=== PATIENT | female | born 1985 | race African-American/Black ===

== ENCOUNTER 2017-05-15 23:54 | Inpatient (IN) ==
[2017-05-16] MEDS ORDERED: ZOFRAN IV PRN (00:24)
[2017-05-16] MEDS ORDERED: NS 1,000 ML IV ONE (00:25)
[2017-05-16] MEDS ORDERED: OFIRMEV 1000 MG/ISOTONIC SOLN 1,000 MG/100 ML BOTTLE IV ONE (00:37)
[2017-05-16 00:38] LABS: MANUAL DIFF NEEDED? NO
[2017-05-16] MEDS ORDERED: POTASSIUM CHLORIDE 20% LIQUID PO ONE (01:04)
[2017-05-16] MEDS ORDERED: ROBAXIN PO ONE (01:05)
[2017-05-16] MEDS ORDERED: NS 2,000 ML IV ONE (01:06)
[2017-05-16 01:07] LABS: AGAP 16; ALBUMIN 4.3 g/dL (3.5-5.0); ALKALINE PHOSPHATASE 52 U/L (32-104); AMYLASE 86 U/L (20-200); BUN 8 mg/dL (8-22); CALCIUM 9.4 mg/dL (8.8-10.2); CHLORIDE 101 mmol/L (98-107); COSMO 277; GOT 20 U/L (10-30); GPT 17 U/L (10-36); LIPASE 19 U/L (13-60); POTASSIUM 3.4 mmol/L (3.5-5.1); SODIUM 138 mmol/L (136-145); TCO2 22 mmol/L (25-35); TOTAL PROTEIN 7.6 g/dL (6.3-8.3)
[2017-05-16 01:14] LABS: BASO% 0.3 % (0.0-0.8); EOS# 0.01 X1000 (0.0-0.7); EOS% 0.1 % (0.0-10.0); HEMATOCRIT 37.1 % (37.0-47.0); IMM GRAN# 0.01 X1000 (0.0-0.04); IMM GRAN% 0.1 % (0.0-0.5); LYMPH# 1.45 X1000 (1.2-3.4); LYMPH% 19.6 % (20.5-51.1); MCH 31.8 PG (27-31); MCV 90.7 FL (81-99); MONO# 0.39 X1000 (0.11-0.59); MONO% 5.3 % (1.7-9.3); MPV 9.1 FL (7.4-10.4); NEUT% 74.6 % (42.2-75.2); PLT 296 X1000 (130-400); RBC 4.09 XMIL (4.2-5.4)
[2017-05-16] MEDS ORDERED: PHENERGAN IV ONE (01:32)
[2017-05-16] MEDS ORDERED: SODIUM CHLORIDE 0.9% INJ ONE (01:32)
[2017-05-16 01:50] LABS: URINE CULTURE PL NEEDED? NO
[2017-05-16 01:59] LABS: UR AMPHETAMINES QUAL NONE DETECTED (NONE DETECT); UR BARBITUATES QUAL NONE DETECTED (NONE DETECT); UR BENZODIAZEPIN QUAL NONE DETECTED (NONE DETECT); UR CANNABINOIDS QUAL PRESUMPTIVE POSITIVE (NONE DETECT); UR COCAINE QUAL NONE DETECTED (NONE DETECT); UR MDMA QUAL NONE DETECTED (NONE DETECT); UR METHADONE QUAL NONE DETECTED (NONE DETECT); UR METHAMPHETAMINE QUAL NONE DETECTED (NONE DETECT); UR OPIATES QUAL NONE DETECTED (NONE DETECT); UR OXYCODONE QUAL NONE DETECTED (NONE DETECT); UR PCP QUAL NONE DETECTED (NONE DETECT); UR TCA QUAL NONE DETECTED (NONE DETECT)
[2017-05-16 02:19] LABS: BILIRUBIN URINE NEGATIVE (NEGATIVE); BLOOD URINE NEGATIVE (NEGATIVE); CLARITY CLEAR (CLEAR); COLOR YELLOW; GLUCOSE URINE NEGATIVE (NEGATIVE); LEUKOCYTES URINE NEGATIVE (NEGATIVE); NITRITE URINE NEGATIVE (NEGATIVE); PROTEIN URINE TRACE mg/dL (NEGATIVE); URINE EPITHELIAL CELLS <10 /HPF (<10); URINE RBC <10 /HPF (<10); URINE WBC <10 /HPF (<10); UROBILINOGEN URINE 4+(12 mg/dL)
[2017-05-16 02:20] LABS: URINE SOURCE CATH
[2017-05-16] MEDS ORDERED: REGLAN IV ONE (02:43)
[2017-05-16] MEDS ORDERED: POTASSIUM CHLORIDE 10 MEQ in NS 1,000 ML IV ONE (02:44)
[2017-05-16] MEDS ORDERED: NS + KCL 20 MEQ 1,000 ML IV ONE (03:07)
[2017-05-16] MEDS: ZOFRAN IV PRN ×4 (04:56→19:03)
[2017-05-16] MEDS: DILAUDID IV PRN ×4 (05:56→20:05)
--- NOTE | 2017-05-16 07:16 | Diag Imaging Result Doc PS360 ---
KUB ABDOMEN - 05/16/2017 INDICATION: vomiting TECHNIQUE: COMPARISON: 04/07/2017 FINDINGS: There are two metallic densities projecting over the pelvic soft tissues. Their location is uncertain. Stable cholecystectomy clips. No evidence of bowel obstruction or free air. IMPRESSION: Nonspecific findings. Electronically signed by Ron Patino 05/16/2017 7:13 AM
[2017-05-16] MEDS: NS 1,000 ML IV SCH (11:47)
--- NOTE | 2017-05-16 12:00 | Diag Imaging Result Doc PS360 ---
CT ABD/PELVIS W/ IV CONT ONLY - 05/16/2017 INDICATION: abd pain TECHNIQUE: A CT dose reduction protocol was used. COMPARISON: 05/17/2015 FINDINGS: The lung bases are clear and the heart size is normal. Stable cholecystectomy clips. Stable benign left renal cyst. There is some physiologic pelvic free fluid. There are probably some ovarian cysts bilaterally. No bowel obstruction or inflammation. Urinary bladder and rectum are normal. The liver, spleen, pancreas, and adrenals are normal. Bones are intact. IMPRESSION: 1. Physiologic pelvic free fluid. 2. Possible bilateral ovarian cysts. 3. Otherwise negative. Electronically signed by Ron Patino 05/16/2017 11:58 AM
[2017-05-17] MEDS: NS 1,000 ML IV SCH ×2 (00:06→14:24)
[2017-05-17] MEDS: ZOFRAN IV PRN ×2 (00:06→04:10)
[2017-05-17] MEDS: DILAUDID IV PRN ×4 (00:06→12:56)
[2017-05-17 07:18] LABS: MANUAL DIFF NEEDED? NO
[2017-05-17 07:22] LABS: BASO% 0.1 % (0.0-0.8); HEMATOCRIT 37.2 % (37.0-47.0); HEMOGLOBIN 13.1 g/dL (12.0-16.0); IMM GRAN# 0.01 X1000 (0.0-0.04); IMM GRAN% 0.1 % (0.0-0.5); LYMPH# 1.05 X1000 (1.2-3.4); LYMPH% 14.3 % (20.5-51.1); MCHC 35.2 g/dL (33-37); MCV 90.7 FL (81-99); MONO# 0.47 X1000 (0.11-0.59); MONO% 6.4 % (1.7-9.3); MPV 8.7 FL (7.4-10.4); NEUT% 79.1 % (42.2-75.2); PLT 226 X1000 (130-400)
[2017-05-17 07:35] LABS: AGAP 15; BUN 7 mg/dL (8-22); CALCIUM 8.6 mg/dL (8.8-10.2); CHLORIDE 106 mmol/L (98-107); COSMO 277; POTASSIUM 3.7 mmol/L (3.5-5.1); SODIUM 141 mmol/L (136-145); TCO2 21 mmol/L (25-35)
[2017-05-17] MEDS ORDERED: PROTONIX IV SCH (08:15)
[2017-05-17] MEDS ORDERED: SODIUM CHLORIDE 0.9% INJ SCH (08:15)
[2017-05-17] MEDS ORDERED: REGLAN PO SCH (11:00)
[2017-05-17 11:48] VITALS: BP 121/74
[2017-05-17] MEDS ORDERED: CARAFATE LIQUID PO SCH (14:00)
[2017-05-18] MEDS ORDERED: PRILOSEC PO SCH (07:00)
== END 2017-05-17 16:15 | disposition home or self-care (01) ==
LOC: P.ED 23:54 → P.MEDSURG 05-16 03:08 → SUATTDRO 05-16 03:08 → P.MEDSURG 05-16 03:17
PROVIDERS: ADMIT Family Medicine; ATTEND Internal Medicine

== ENCOUNTER 2019-06-03 13:09 | Inpatient (IN) ==
[2019-06-03 13:37] LABS: URINE SOURCE CLEAN CATCH
[2019-06-03 13:40] LABS: BILIRUBIN URINE SMALL (NEGATIVE); BLOOD URINE MODERATE (NEGATIVE); COLOR YELLOW; GLUCOSE URINE NEGATIVE (NEGATIVE); KETONE URINE 20 mg/dL (NEGATIVE); LEUKOCYTES URINE NEGATIVE (NEGATIVE); NITRITE URINE NEGATIVE (NEGATIVE); PH URINE 6.5; PROTEIN URINE 200 mg/dL (NEGATIVE); SP GRAVITY URINE 1.048; TURBIDITY URINE CLEAR (CLEAR); UROBILINOGEN URINE 3 mg/dL (NORMAL)
[2019-06-03 13:41] LABS: UR EPITHELIAL CELLS <10 /HPF (<10); URINE BACTERIA NEGATIVE /HPF; URINE WBC <10 /HPF (<10)
[2019-06-03] MEDS ORDERED: COMPAZINE IV ONE (13:54)
[2019-06-03] MEDS ORDERED: NS 1,000 ML IV ONE (13:54)
[2019-06-03] MEDS ORDERED: TORADOL IV ONE (13:55)
--- NOTE | 2019-06-03 13:55 | Diag Imaging Result Doc PS360 ---
EXAM: CHEST-1 VIEW HISTORY: POSSIBLE SEPSIS TECHNIQUE: Single view 04/30/2019 COMPARISON: None. FINDINGS: The lungs are well expanded. The heart is not enlarged. The vessels are not distended. There are no infiltrates. No effusion identified. IMPRESSION: No pneumonia. Follow-up PA and lateral recommended if symptoms persist. Electronically signed by Abimael Helton 06/03/2019 1:53 PM
--- NOTE | 2019-06-03 13:59 | PROVIDER DOCUMENTATION ---
HPI-Abdominal Pain/GI Problem - General Chief Complaint: Abdominal Pain Stated Complaint: LEFT FLANK PAIN Time Seen by Provider: 06/03/19 13:34 Source: patient Allergies/Adverse Reactions: Patient Allergies Allergy/AdvReac Type Severity Reaction Status Date / Time No Known Allergies Allergy Verified 06/03/19 13:51 Home Medications: Home Medication List Medication Instructions Recorded Confirmed Last Taken Type Doxycycline 100 mg PO BID #20 tab 05/31/19 06/03/19 1 Day Ago Rx ~06/02/19 Hydrocodone/Acetaminophen 1 ea PO Q6H PRN 06/03/19 06/03/19 1 Day Ago History [Hydrocodone-Acetamin 7.5-325] ~06/02/19 - History of Present Illness-ABD Nature of Presenting Problems: Patient is a 33 yobf who complains of lower back, left flank, and LLQ pain x 4 days. The pain is associated with n/v. Denies fever or any other complaints at this time. Has been seen here multiple times for same recently. Review of Systems - Adult - REVIEW OF SYSTEMS - ADULT Constitutional: reports: no symptoms reported. denies: fever Eyes: reports: no symptoms reported Ears, Nose, Mouth & Throat: reports: no symptoms reported Cardiovascular: reports: no symptoms reported Respiratory: reports: no symptoms reported Gastrointestinal: reports: see HPI Genitourinary: reports: no symptoms reported Musculoskeletal: reports: no symptoms reported Integumentary: reports: no symptoms reported Neurological: reports: no symptoms reported Psychiatric: reports: no symptoms reported Endocrine: reports: no symptoms reported Hematologic/Lymphatic: reports: no symptoms reported Allergic/Immunologic: reports: no symptoms reported All Other Systems: Reviewed and Negative Past History - Adult - PAST MEDICAL HISTORY-ADULT Review of Records: reports: Old Records Reviewed, Nursing Assessment Review, Medications Reviewed Major Childhood Illnesses: reports: denies history Cardiovascular: reports: denies history Respiratory: reports: denies history Gastrointestinal: reports: GERD, IBS, other ([facility]) Obstetrical/Gynecological: reports: denies history Genitourinary: reports: denies history Musculoskeletal: reports: chronic pain (back) Neurological: reports: denies history Psychiatric: reports: denies history Endocrine/Immune: reports: denies history Other Conditions: reports: denies history - PRIOR SURGERIES/PROCEDURES Surgical/Procedure History: reports: cholecystectomy, BTL, tonsillectomy - IMMUNIZATION STATUS Childhood Immunizations: See Nurse Assessment Flu Vaccine: See Nurse Assessment - FAMILY HISTORY Family History: reviewed, not pertinent - SOCIAL HISTORY Smoking: non-smoker Physical Exam-General - PHYSICAL EXAM-ADULT Initial Vital Signs Reviewed: Yes - CONSTITUTIONAL General Appearance: alert, moderate distress. negative: lethargic, slow to respond - EYES Eyes: PERRL/EOMI, pink conjunctivae - HEAD, EARS, NOSE, MOUTH & THROAT HENMT: normocephalic/atraumatic - NECK Neck: full range of motion, supple, normal inspection - RESPIRATORY Respiratory: chest non-tender, lungs clear, normal breath sounds, no pleuratic chest pain, no respiratory distress, no accessory muscle use - CARDIOVASCULAR Cardiovascular: regular rate, rhythm, no gallop, no murmur, tachycardia - GASTROINTESTINAL (ABDOMEN) Abdominal Exam: normal bowel sounds, soft, tenderness (LLQ). negative: distended, guarding, rigid, rebound - MUSCULOSKELETAL Back Exam: normal inspection, no CVA tenderness Extremity: normal range of motion, non-tender, normal inspection - SKIN Integumentary: normal color, warm/dry. negative: cyanosis, diaphoresis, jaundice, mottled, pallor - NEUROLOGIC Neurologic: grossly normal, no motor/sensory deficits - PSYCHIATRIC Psych/Mental Status: normal thought content, normal thought process, oriented x 3, other (restless) Progress - PLAN OF CARE/RESULTS Progress/Plan/Lab Results: Vital Signs - 8 hr 06/03/19 13:11 Temperature 98.4 F Pulse Rate 112 H Respiratory Rate 20 Blood Pressure 110/70 O2 Sat by Pulse Oximetry 97 Laboratory Results - last 24 hr 06/03/19 13:19 Urine Source CLEAN CATCH Urine Color YELLOW Urine Turbidity CLEAR Urine pH 6.5 Ur Specific [place] 1.048 Urine Protein 200 A Ur Glucose (Stick) NEGATIVE Ur Ketones (Stick) 20 A Urine Blood MODERATE A Urine Nitrite NEGATIVE Urine Bilirubin SMALL A Urobilinogen Dipstick 3 A Urine Leukocytes NEGATIVE Urine WBC (Auto) <10 Urine RBC (Auto) 10-20 A U Epithel Cells (Auto) <10 Urine Bacteria (Auto) NEGATIVE Orders Category Date Time Status Cardiac Monitoring DIRECTED Care 06/03/19 13:25 Active IV Insertion ORDERED Care 06/03/19 13:25 Completed Notify MD of + Sepsis Screen NOW Care 06/03/19 13:25 Active Notify Physician As Ordered Care 06/03/19 13:25 Active CHEST-1 VIEW [RAD] Stat Exams 06/03/19 13:25 Completed BLOOD CULTURE [BLDCUL] Stat Lab 06/03/19 13:50 Ordered CBC WITH DIFF [HEME] Stat Lab 06/03/19 13:50 Ordered CK PROFILE [SP CHEM] Stat Lab 06/03/19 13:50 Ordered COMPREHENSIVE METABOLIC PANEL [CHEM] Stat Lab 06/03/19 13:50 Ordered LACTATE, PLASMA [CHEM] Lab 06/03/19 13:54 Ordered LACTATE, PLASMA [CHEM] Lab 06/03/19 16:30 Uncollected LACTATE, PLASMA [CHEM] Lab 06/03/19 19:30 Uncollected TEST-URINE [PREG] Stat Lab 06/03/19 13:58 Ordered PROTIME WITH INR [COAG] Stat Lab 06/03/19 13:50 Ordered PTT [COAG] Stat Lab 06/03/19 13:50 Ordered TROPONIN T Stat Lab 06/03/19 13:50 Ordered URINALYSIS W/POSS RFLX CULT [URINALYSIS] Stat Lab 06/03/19 13:19 Completed URINE DRUG SCREEN Stat Lab 06/03/19 13:58 Ordered 0.9% Sodium Chloride Inj [Ns] 1,000 ml Med 06/03/19 13:54 Active IV 999 mls/hr Ketorolac [Toradol] Med 06/03/19 13:55 Discontinued 15 mg IV NOW ONE Prochlorperazine [Compazine] Med 06/03/19 13:54 Discontinued 10 mg IV NOW ONE Oxygen Device Stat Oth 06/03/19 13:25 Completed Result Diagrams: 06/03/19 13:45 06/03/19 13:45 - REASSESSMENT Reassessment #1 Time Reassessed: 13:58 Status: other (Reviewed old records and CT from 05/31/19. Appears that pt having same s/s. Will medicate and reassess, no indication for repeat CT at this time.) Reassessment #2 Time Reassessed: 15:00 Status: unchanged (report received by HALLIE Shin. Awaiting labs on patient. She is resting in bed at this time.) - XRAY 1 XRAY Study: Chest ([facility] - [address], [address], [place] [address] [facility] - [address] , [place] [address] Department of Imaging Patient: GOGO SAAVEDRA Date: 06/03/19MR#: [id number] : 1985ADM Status: PRE ERAcct#: [id number] Age/Sex: 33/FRoom/Bed: Loc: ED Ordering Physician: Marvin Villagomez MD Family Physician: Taran Estrada MD Reason for Procedure: POSSIBLE SEPSIS ___ Signed EXAM: CHEST-1 VIEW HISTORY: POSSIBLE SEPSIS TECHNIQUE: Single view 04/30/2019 COMPARISON: None. FINDINGS: The lungs are well expanded. The heart is not enlarged. The vessels are not distended. There are no infiltrates. No effusion identified. IMPRESSION: No pneumonia. Follow-up PA and lateral recommended if symptoms persist. Electronically signed by Abimael Helton 06/03/2019 1:53 PM 06/03/19 1353 Interpreting Physician: Abimael Helton MD Dictated Date/Time: 06/03/19 1352 cc: Marvin Villagomez MD; Taran Estrada MD) - CONSULTS/PCP/HOSPITALIST Notification #1 *Consult/PCP/Hospitalist*: HALLIE Kuhn Time Discussed: 15:47 Reason/Comments: Rhabdo, hypernatremia Consult Disposition: Admit - CHANGE OF SHIFT REPORT (ED Provider) 1 Report Given and Care Transferred to:: HALLIE Hubbard Time of Transfer: 15:16 Items Pending: Labs, Pain Control Departure - Departure Date of Disposition Decision: 06/03/19 Time of Disposition Decision: 15:48 DIAGNOSIS: Rhabdomyolysis, Dehydration, Cyclic vomiting syndrome, Cannabis hyperemesis syndrome concurrent with and due to cannabis abuse Disposition: ADMITTED INPATIENT 09 Certified Medical Emergency: Emergent Condition: Critical Referrals and Follow-Ups: Taran Estrada MD [Primary Care Provider] - Discharge Education: Steps to Quit Smoking, [id number] - Critical Care Note This patient required my direct & personal management of CC.: No Attestation - Physician/ PÉREZ Attestation Patient care was provided by Advanced Practice Provider:: Yes Advanced Practice Provider:: Chang Gonzales Advanced Practice Provider documentation review:: The Mid-level provider documentation, treatment plan and medical decision making was reviewed by the physician who agrees with all treatment and medical decision making by the MLP. The physician spent face to face time with patient:: No Advanced Practice Provider documentation review:: Supervising physician onsite and consulted in the evaluation and care of this patient. The physician did not have a face to face encounter with the patient.
[2019-06-03 14:24] LABS: BASO# 0.02 X1000 (0.0-0.2); BASO% 0.2 % (0.0-0.8); EOS# 0.01 X1000 (0.0-0.7); EOS% 0.1 % (0.0-10.0); HEMATOCRIT 46.6 % (37.0-47.0); HEMOGLOBIN 15.2 g/dL (12.0-16.0); IMM GRAN# 0.02 X1000 (0.0-0.04); IMM GRAN% 0.2 % (0.0-0.5); LYMPH# 1.14 X1000 (1.2-3.4); LYMPH% 13.9 % (20.5-51.1); MCH 30.7 PG (27-31); MCHC 32.6 g/dL (33-37); MCV 94.1 FL (81-99); MONO# 0.54 X1000 (0.11-0.59); MONO% 6.6 % (1.7-9.3); MPV 9.4 FL (7.4-10.4); PLT 239 X1000 (130-400); RBC 4.95 XMIL (4.2-5.4); RDW 13.9 % (11.5-14.5); WBC 8.23 X1000 (4.8-10.8)
[2019-06-03 14:30] LABS: INR 1.04; PROTIME 13.7 Seconds (11.0-16.0)
[2019-06-03 15:18] LABS: AGAP 16; ALB/GLOB RATIO 1.8; ALKALINE PHOSPHATASE 67 U/L (32-104); BUN 29 mg/dL (8-22); CALCIUM 9.7 mg/dL (8.8-10.2); CHLORIDE 118 mmol/L (98-107); COSMO 321; CREATININE 0.9 mg/dL (0.5-0.9); ESTIMATED GFR > 60; GLUCOSE 110 mg/dL (70-104); GOT 454 U/L (10-30); GPT 297 U/L (10-36); POTASSIUM 4.2 mmol/L (3.5-5.1); SODIUM 159 mmol/L (136-145); TCO2 25 mmol/L (25-35); TOTAL BILIRUBIN 0.73 mg/dL (0.20-1.00); TOTAL PROTEIN 7.8 g/dL (6.3-8.3)
[2019-06-03 15:27] LABS: CK PROFILE > 20000 U/L (24-173)
[2019-06-03] MEDS ORDERED: SODIUM BICARBONATE 8.4% 150 MEQ in D5W 1,000 ML IV SCH (15:45)
[2019-06-03 15:46] LABS: CK-MB 29.11 ng/mL (0.0-5.0)
[2019-06-03 15:57] LABS: UR AMPHETAMINES QUAL NONE DETECTED (NONE DETECT); UR BARBITUATES QUAL NONE DETECTED (NONE DETECT); UR BENZODIAZEPIN QUAL NONE DETECTED (NONE DETECT); UR CANNABINOIDS QUAL PRESUMPTIVE POSITIVE (NONE DETECT); UR COCAINE QUAL NONE DETECTED (NONE DETECT); UR METHADONE QUAL NONE DETECTED (NONE DETECT); UR OPIATES QUAL PRESUMPTIVE POSITIVE (NONE DETECT); UR OXYCODONE QUAL PRESUMPTIVE POSITIVE (NONE DETECT); UR PCP QUAL NONE DETECTED (NONE DETECT)
[2019-06-03] MEDS ORDERED: SODIUM BICARBONATE 8.4% 50 MEQ in D5W 1,000 ML IV ONE (16:28)
[2019-06-03 16:45] LABS: UR POTASSIUM 87.2 mmoll
[2019-06-03] MEDS ORDERED: SODIUM CHLORIDE 0.9% INJ SCH (16:45)
[2019-06-03 16:51] LABS: ALLEN TEST NO; BE 2.6 mmoll (-3.0-3.0); BLOOD TYPE ARTERIAL; HCO3-(ACT) 26.9 mmoll (20.0-26.0); METHB 1.3 % (0.0-1.5); MODALITY ROOM AIR; O2(CT) 18.7 mL/dL (15.0-23.0); O2HB 95.9 % (95.0-99.0); PCO2(98.6) 41 mmHg (35-45); PO2(98.6) 105 mmHg (60-100); SAMPLE BLOOD; SAO2 99.1 % (95.0-100.0); THB 13.8 g/dL (11.5-17.4); pH(98.6) 7.43 (7.35-7.45)
[2019-06-03] MEDS ORDERED: ATIVAN IV ONE (17:30)
[2019-06-03] MEDS: ATIVAN IV PRN (18:14)
[2019-06-03] MEDS: MORPHINE IV PRN ×2 (18:15→23:47)
--- NOTE | 2019-06-03 19:05 | HISTORY AND PHYSICAL ---
PRIMARY CARE PHYSICIAN: Taran Estrada MD CHIEF COMPLAINT: One week with intermittent nausea and vomiting and poor appetite and abdominal pain. HISTORY OF PRESENT ILLNESS: Ms. West is a 33-year-old female with a history of cannabis hyperemesis syndrome and marijuana dependence who presented to the ER today with a chief complaint of a week of persistent lower abdominal pain associated with intermittent bouts of nausea and vomiting. The patient reports that she had this same thing happen in July of last year at which time she was admitted for several days for treatment. The patient initially presented to the ER on May 30 with a chief complaint of abdominal pain, as well as intermittent nausea and vomiting and a very poor appetite. She was assessed and given some fluid and pain medication and sent home. She then returned to the ER on May 31 with the same complaints. During that visit, a CT of the abdomen and pelvis done which revealed no acute disease. She was treated with 2 L of fluid and given a prescription for doxycycline and told to stop smoking marijuana and to follow up with her primary care physician. Today, the patient states that her symptoms have worsened, and she is unable to eat anything. She states that she has been drinking Gatorade as much as she can, but she ends up vomiting shortly after drinking it. She rates the abdominal pain at a 10/10 in intensity and describes it as a cramping sensation that will not stop. The patient states that Dr. Estrada placed her on Megace recently. The patient admits to smoking marijuana 3 times a day almost everyday and has been doing this for several years. In the ER today, the patient was noted to have a CK of greater than 20,000 and a sodium of 159 with normal renal function. In the ER, the patient was started on a bicarbonate drip. PAST MEDICAL HISTORY: 1. Cannabis hyperemesis syndrome. 2. Marijuana dependence. PAST SURGICAL HISTORY: None. FAMILY HISTORY: Reviewed and noncontributory. SOCIAL HISTORY: The patient states that she lives with her boyfriend. The patient smokes marijuana 3 times a day every day and has been doing this for several years. She denies any alcohol usage. ALLERGIES: No known drug allergies. HOME MEDICATIONS: 1. Andrews 7.5/325 one tablet oral every 6 hours p.r.n. for pain. 2. Megace 40 mg p.o. daily. REVIEW OF SYSTEMS: A 12-point review of systems has been performed. Please refer to the history of present illness for pertinent positives and negatives. PHYSICAL EXAMINATION: VITAL SIGNS: Temperature 98 degrees, blood pressure 107/68, heart rate 73, respirations 18, and O2 saturations 100% on room air. GENERAL: This is a cachectic young female writhing on the stretcher. HEENT: Normocephalic, atraumatic.Conjunctiva clear, EOMI, PERRLA. Poor dentition. Dry mucus membranes. NECK: Supple. Trachea is midline. No JVD. No lymphadenopathy. HEART: S1, S2 normal. Regular rate and rhythm. LUNGS: Clear to auscultation bilaterally. No wheezing. No rales. No rhonchi. ABDOMEN: Positive bowel sounds. Soft. Diffuse tenderness on palpation. No rebound tenderness EXTREMITIES: No peripheral edema, . No cyanosis. No calf tenderness. NEUROLOGIC: The patient is alert and oriented x3. No focal neurologic deficits noted. Cranial nerves 2 through 12 intact. LABS: White blood cell count 8.2, hemoglobin 15, hematocrit 46, platelets 239,000. INR 1. ABG, pH 7.43, pCO2 of 41, PO2 of 105, bicarbonate 26. Sodium 159, potassium 4.2, chloride 118, CO2 of 25, BUN 29, creatinine 0,.9 glucose 110. AST 454, ALT 297, alkaline phosphatase 67. CK greater than 20,000. Troponin less than 0.01, albumin 5. UA shows moderate blood, small bilirubin, 3+ urobilinogen, negative for leukocytes. Toxicology screen reveals positive for opiates, oxycodone, and cannabinoids. Chest x-ray shows no acute disease. ASSESSMENT AND PLAN: 1. Cyclic vomiting syndrome. This is likely secondary to the patient's heavy marijuana usage. The patient has been counseled extensively about the importance of cessation. In the meantime, the patient will be hydrated and started on antiemetic therapy. 2. Acute rhabdomyolysis. The etiology is unknown. The patient denies any recent falls or initiation of any new medications. The patient has been placed on a bicarbonate drip. We will monitor the CK closely and monitor the patient's renal function closely. 3. Severe hypernatremia. Likely secondary to dehydration given the patient's persistent nausea and vomiting. The patient has been started on a bicarbonate drip at this time. The fluids will be adjusted based on serial sodium checks. We will also monitor the patient's mental status and urine output closely. The case was discussed with Dr. Hubbard. 4. Transaminitis. This is likely secondary to the patient's severe dehydration. We will check a hepatitis profile. The patient will be hydrated and will repeat the liver function studies tomorrow morning. 5. Marijuana dependence. The patient has been counseled about cessation. 6. Gastrointestinal prophylaxis. Will start the patient on IV Protonix. 7. Deep vein thrombosis prophylaxis. Will start the patient on Lovenox. cc: Kathie Jaquez MD MTDD
[2019-06-03 23:04] LABS: CK INDEX 0.1 (0.0-2.5); CK-MB 18.66 ng/mL (0.0-5.0)
[2019-06-03] MEDS: D5W 1,000 ML IV SCH (23:41)
[2019-06-03] MEDS: ZOFRAN IV PRN (23:47)
[2019-06-04] MEDS: ATIVAN IV PRN (00:02)
[2019-06-04] MEDS: MORPHINE IV PRN ×4 (06:16→19:10)
[2019-06-04] MEDS: ZOFRAN IV PRN ×3 (06:16→16:23)
[2019-06-04] MEDS: PROTONIX IV SCH (06:17)
[2019-06-04 06:49] LABS: AGAP 14; ALB/GLOB RATIO 1.5; ALBUMIN 3.8 g/dL (3.5-5.0); ALKALINE PHOSPHATASE 49 U/L (32-104); BUN 27 mg/dL (8-22); CHLORIDE 116 mmol/L (98-107); CK PROFILE 9917 U/L (24-173); COSMO 319; CREATININE 0.7 mg/dL (0.5-0.9); ESTIMATED GFR > 60; GLUCOSE 122 mg/dL (70-104); GOT 255 U/L (10-30); GPT 214 U/L (10-36); MAGNESIUM 2.6 mg/dL (1.5-2.7); SODIUM 158 mmol/L (136-145); TCO2 28 mmol/L (25-35); TOTAL BILIRUBIN 0.57 mg/dL (0.20-1.00); TOTAL PROTEIN 6.3 g/dL (6.3-8.3)
[2019-06-04] MEDS: D5W 1,000 ML IV SCH ×2 (07:47→16:23)
[2019-06-04 07:50] LABS: CK INDEX 0.1 (0.0-2.5); CK-MB 10.81 ng/mL (0.0-5.0)
[2019-06-04] MEDS: LOVENOX SUBQ SCH (09:19)
--- NOTE | 2019-06-04 11:16 | NEPHROLOGY CONSULTATION ---
DATE: 06/04/2019 REASON FOR CONSULTATION: Hypernatremia. HISTORY OF PRESENT ILLNESS: Ms. West is a 33-year-old -[place] woman who has chronic back pain and takes hydrocodone at home. 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 She has been dealing with left lower quadrant abdominal discomfort and has made several trips to the emergency room and was ultimately admitted to the hospital yesterday. Her abdominal discomfort is associated with anorexia but no vomiting. Decreased number of bowel movements but no complaint of constipation and certainly no diarrhea. Her evaluation in the emergency room found normal blood pressure and markedly elevated CK and hypernatremia. After telephone discussion yesterday with Dr. Jaquez, we treated the patient with D5 water overnight with essentially no improvement in her hypernatremia. Sodium 159 on admission and 158 today. She denies polyuria or polydipsia. She denies use of supplements, vitamins, herbs, or street drugs. PAST MEDICAL HISTORY: As above. HOME MEDICATION: Hydrocodone. SOCIAL HISTORY: As above. The chart indicates that she does actually use marijuana. She lives with her boyfriend. FAMILY HISTORY AND REVIEW OF SYSTEMS: Otherwise noncontributory. PHYSICAL EXAMINATION: Vital signs: Blood pressure 91/61, heart rate 103, respiration 18, afebrile. General: She is a thin -[place]ian woman middle-aged, obvious weight loss, in no acute distress. Skin: Warm and dry. HEENT: Conjunctiva are pink. Pupils are equal. Oropharynx is clear with poor oral hygiene but otherwise normal. Tongue is coated. Neck: Supple. Trachea is midline. Neck veins are not visible. Heart: PMI nondisplaced. Regular rate and rhythm without gallops or murmurs. Lungs: Have equal breath sounds. No crackles, wheezes, dullness, retractions, etc. Abdomen: Minimally tender in the left lower quadrant but no guarding or rebound. Obvious weight loss. No organomegaly or masses. Extremities: Have no edema, clubbing, or cyanosis. Neurologic exam: Nonfocal. IMPRESSION: Hypernatremia. Etiology is not obvious. Her urine osmolality was greater than 1200. There was no glucose on her dipstick urine. Random urine sodium was only 38. The connection between her hypernatremia and her evident rhabdomyolysis is also not obvious. We will continue her IV fluids as ordered and monitor her sodium and her CK carefully. Will order a more thorough toxicology screen as well as HIV testing. Will follow along. cc: Michelet Hubbard MD
[2019-06-04 13:34] LABS: HEPATITIS PROFILE ACUTE SEE COMMENTS
--- NOTE | 2019-06-04 15:40 | Diag Imaging Result Doc PS360 ---
US PELVIC NON-OB COMPLETE - 06/04/2019 INDICATION: pelvic pain TECHNIQUE: Transabdominal and endovaginal COMPARISON: CT from 05/31/2019 FINDINGS: The uterus is normal in echotexture. Endometrial stripe thickness is 5 mm. The uterus measures 7.3 x 4.5 x 3.3 cm. The right ovary is normal. The right ovary measures 2.3 x 2.2 x 1.7 cm. The left ovary is obscured. No mass or significant fluid collection. IMPRESSION: Negative exam. Electronically signed by Ron Patino 06/04/2019 3:38 PM
--- NOTE | 2019-06-04 17:36 | GASTROENTEROLOGY CONSULTATION ---
DATE: 06/04/2019 REASON FOR CONSULT: Abdominal pain and persistent nausea. HISTORY OF PRESENT ILLNESS: Ms. West is a 33-year-old female with a history of cannabinoid hyperemesis syndrome and marijuana dependency. She came to the ER last night complaining of nausea and vomiting. Her emesis was brown in color. She has been having this for the last 2 weeks onwards. The patient complained of abdominal pain in the lower quadrants. The patient mentioned that last July, she was admitted to the hospital for the same reason. She had recently come to the ER on May 30 with a complaint of abdominal pain, intermittent nausea, vomiting and lack of appetite. An abdominal CT on 05/31 revealed no acute disease. Chest x-ray showed no pneumonia. She received some IV fluids and pain medications in the ER and was sent home the next day. She was given a prescription of doxycycline on discharge. Patient does have an extensive history of consuming marijuana 2 to 3 times a day. She states that "it helps her with her nausea and vomiting." Patient's PCP is Dr. Estrada and he prescribed her Megace. Ms. West did mention that during her menstrual cycle she has cramps and nausea, She is currently on her cycle which started on 05/30/19 and it continues for 7 days. She also complained of having headaches and fever, has lost at least 20 pounds in the last 6 months. PAST MEDICAL HISTORY: Marijuana dependency, cannabinoid hyperemesis syndrome. Irritable bowel syndrome. PAST SURGICAL HISTORY: Cholecystectomy in 2011 and tonsillectomy during childhood. SOCIAL HISTORY: She is currently living with her boyfriend, has 2 kids. Denies any smoking or alcohol, but consumes marijuana 2 to 3 times a day. ALLERGIES: No known drug allergies. FAMILY HISTORY: Mom has hypertension and dad has a history of Crohn disease. HOME MEDICATIONS: Doxycycline 100 mg twice a day, hydrocodone/acetaminophen 7.5/325 mg 1 tablet every 6 hours p.r.n. for pain. REVIEW OF SYSTEMS: As per HPI. Otherwise, 12 point review of system is negative. PHYSICAL EXAMINATION: Vital Signs: Temperature 98.4 degrees, pulse 76, respirations 18, blood pressure 99/68, oxygen saturation 100% on room air. Her weight is 114 pounds. BMI 17.9 kg/m2. General: She is alert, oriented x3, and in no acute distress. HEENT: Pale conjunctivae. No icterus. PERRL. Neck: Supple. Lungs: Clear to auscultation in the anterior romero. Cardiovascular: Regular rate and rhythm. Neck: Supple. Abdomen: Soft, nondistended, mild tenderness in the lower quadrants. No rebound tenderness or guarding noted. Active bowel sounds present in all 4 quadrants. Extremities: No cyanosis, no clubbing, no edema. Pedal pulses 2+ present bilaterally. Neurologic: Alert, oriented x3. Nonfocal. Cranial nerves 2-12 is grossly intact. LABORATORY DATA: WBC 8.23, RBC 4.95, hemoglobin 15.2, hematocrit 46.6, platelet count is 339,000. Sodium 156, potassium 4.0, chloride 116, carbon dioxide 28, anion gap 14, BUN 27, creatinine 0.7, glucose 122, calcium 9.0, total bilirubin is 0.57, AST 255, ALT 214, alkaline phos 49. Urinalysis showed protein 200, ketones 20, moderate blood. Toxicology report showed urine opiate screen presumptive positive, urine oxycodone screen presumptive positive, urine cannabinoid screen presumptive positive. Chest x-ray showed no pneumonia. Abdominal CT and pelvis showed no acute disease. IMPRESSION AND PLAN: Abdominal pain Nausea/Vomiting Marijuana dependency Cannabinoid hyperemesis syndrome Dehydration Severe hypernatremia Rhabdomylosis PLAN: We plan to treat the patient therapeutically, per PCP she is on IV fluid D5W at 125 mL/h. Zofran for 4 mg every 4 hours for her nausea and vomiting and Protonix 40 mg IV daily. The patient's hemoglobin is 15.2 and hematocrit is 46.6. She is hemodynamically stable. Her sodium level is 158, patient has severe hypernatremia and is also being seen by the engineering model maker. We will continue monitor her CBCs, BMPs and also follow the plan of care per PCP and the engineering model maker. This plan was discussed with Dr. Angulo. Thank you for your consult. Please call us for any further questions or concerns. Dictated by HALLIE Sears for rUiel Angulo MD Physician Attestation I have seen and examined the patient. I have discussed and reviewed the the note by Sharmaine STERLING and agree with findings and plan as documented. In brief, Ms. Traci West is a 33 year old woman who presented with hypernatremia, rhabdo, and dehydration in the setting of several days of N/V from cannabinoid hyperemesis syndrome. Her nausea has resolved and she is tolerating liquid diet. Recommend continued IVFs, correcting metabolic derangements, antiemetics and counseling on marijuana cessation. She is on PPI; however, this can be discontinued upon discharge if she does not have underlying GERD. Will sign off. Please call with questions. MAR
--- NOTE | 2019-06-04 19:18 | PROGRESS NOTE ---
DATE: 06/04/2019 SUBJECTIVE: The patient is resting comfortably. She states that she feels better. She does complain of left lower quadrant pain. OBJECTIVE: Vital Signs: Temperature 99 degrees, blood pressure 101/70, heart rate 68, respirations 20, O2 saturations 100% on room air. General: This is a young female sitting up in bed in no acute distress. Heart: S1, S2 normal. Regular rate and rhythm. Lungs: Clear to auscultation bilaterally. Abdomen: Positive bowel sounds. Soft, nontender, nondistended. Extremities: No edema, no cyanosis. Neurologic: The patient is alert and oriented x3. LABORATORY DATA: Sodium 147, potassium 4, chloride 116, CO2 28, BUN 27, creatinine 0.7, glucose 122. CK 9917. ASSESSMENT AND PLAN: 1. Severe hypernatremia. Slowly improving. We will continue with IV fluid hydration. Nephrology is following. 2. Rhabdomyolysis. Slowly improving. Continue with IV fluids. 3. Transaminitis. Slightly improved today. We will continue to monitor closely. 4. Marijuana dependence. The patient has been counseled about cessation. 5. Gastrointestinal prophylaxis. Continue on Protonix. 6. Deep vein thrombosis prophylaxis. Continue on Lovenox. cc: Kathie Jaquez MD MTDD
[2019-06-04 21:24] LABS: HIV ANTIBODY SCREEN SEE COMMENTS
[2019-06-05] MEDS: D5W 1,000 ML IV SCH ×4 (00:14→22:58)
[2019-06-05] MEDS: PROTONIX IV SCH (06:23)
[2019-06-05 07:31] LABS: HEMATOCRIT 41.4 % (37.0-47.0); HEMOGLOBIN 13.3 g/dL (12.0-16.0); MCH 31.1 PG (27-31); MCHC 32.1 g/dL (33-37); MCV 96.7 FL (81-99); MPV 9.4 FL (7.4-10.4); RBC 4.28 XMIL (4.2-5.4); RDW 13.6 % (11.5-14.5); WBC 4.63 X1000 (4.8-10.8)
[2019-06-05 08:10] LABS: AGAP 13; ALB/GLOB RATIO 1.5; ALBUMIN 3.7 g/dL (3.5-5.0); ALKALINE PHOSPHATASE 50 U/L (32-104); BUN 18 mg/dL (8-22); CALCIUM 8.3 mg/dL (8.8-10.2); CHLORIDE 103 mmol/L (98-107); COSMO 293; CREATININE 0.7 mg/dL (0.5-0.9); ESTIMATED GFR > 60; GLUCOSE 113 mg/dL (70-104); GOT 147 U/L (10-30); GPT 165 U/L (10-36); PHOSPHORUS 2.4 mg/dL (2.7-4.5); POTASSIUM 3.5 mmol/L (3.5-5.1); SODIUM 146 mmol/L (136-145); TCO2 30 mmol/L (25-35); TOTAL BILIRUBIN 0.41 mg/dL (0.20-1.00); TOTAL PROTEIN 6.1 g/dL (6.3-8.3)
[2019-06-05 08:23] LABS: CK TOTAL 3706 U/L (24-173)
[2019-06-05] MEDS: LOVENOX SUBQ SCH (08:56)
[2019-06-05] MEDS: MORPHINE IV PRN ×2 (09:19→19:39)
[2019-06-05] MEDS: ZOFRAN IV PRN ×2 (09:26→19:38)
[2019-06-05 13:33] LABS: UR CREAT RANDOM 211.2 mg/dL (11-20)
[2019-06-05] MEDS ORDERED: VITAMIN D PO SCH (17:30)
--- NOTE | 2019-06-05 18:00 | PROGRESS NOTE ---
DATE: 06/05/2019 SUBJECTIVE: The patient is complaining of persistent abdominal pain. She states that she feels nauseated whenever she tries to eat. OBJECTIVE: Vital Signs: Temperature 98.3 degrees, blood pressure 116/59, heart rate 67, respirations 14, O2 saturations 100% on room air. General: This is a young female sitting up in bed in no acute distress. Heart: S1, S2 normal. Regular rate and rhythm. Lungs: Clear to auscultation bilaterally. Abdomen: Positive bowel sounds. Soft. Mild tenderness in the left lower quadrant. Extremities: No edema, no cyanosis. Neuro: The patient is alert and oriented x4. LABS: Sodium 146, potassium 3.5, BUN 18, creatinine 0.7, CK 3706. ASSESSMENT AND PLAN: 1. Hypernatremia. Slowly resolving. We will continue the IV fluids. 2. Rhabdomyolysis. Slowly improving. Continue with IV fluid hydration. 3. Transaminitis. Slowly improving. 4. Marijuana dependence. The patient has been counseled about cessation. 5. Abdominal pain. The patient continues to complain of nausea and abdominal pain. Will order a gastric emptying study to be done on Friday. Continue on protonix. 6. Deep vein thrombosis prophylaxis. Continue on Lovenox. cc: Kathie Jaquez MD MTDD
[2019-06-05] MEDS: COLACE PO SCH (21:37)
[2019-06-05] MEDS: MIRALAX PO SCH (21:37)
[2019-06-05] MEDS: ATIVAN IV PRN (21:46)
[2019-06-06] MEDS: MORPHINE IV PRN ×3 (01:30→08:15)
[2019-06-06] MEDS: ZOFRAN IV PRN ×3 (01:30→19:35)
[2019-06-06] MEDS: ATIVAN IV PRN ×2 (01:51→06:04)
[2019-06-06] MEDS: D5W 1,000 ML IV SCH ×3 (06:03→22:44)
[2019-06-06] MEDS: PROTONIX IV SCH (06:04)
--- NOTE | 2019-06-06 06:19 | EKG Report ---
Test Performed on : 06/06/2019 04:14:14 AM Test Reason : CP Blood Pressure : / mmHG Vent. Rate : 082 BPM Atrial Rate : 082 BPM P-R Int : 098 ms QRS Dur : 086 ms QT Int : 378 ms P-R-T Axes : 023 062 045 degrees QTc Int : 441 ms Sinus rhythm. with sinus arrhythmia. with short ID Otherwise normal ECG When compared with ECG of 30-APR-2019 08:25, No significant change was found Unconfirmed Result
[2019-06-06 06:50] LABS: AGAP 15; ALB/GLOB RATIO 1.6; ALBUMIN 3.9 g/dL (3.5-5.0); ALKALINE PHOSPHATASE 51 U/L (32-104); BUN 10 mg/dL (8-22); CALCIUM 8.9 mg/dL (8.8-10.2); CHLORIDE 102 mmol/L (98-107); COSMO 285; CREATININE 0.7 mg/dL (0.5-0.9); ESTIMATED GFR > 60; GLUCOSE 111 mg/dL (70-104); GOT 129 U/L (10-30); GPT 156 U/L (10-36); POTASSIUM 3.4 mmol/L (3.5-5.1); SODIUM 143 mmol/L (136-145); TCO2 26 mmol/L (25-35); TOTAL BILIRUBIN 0.37 mg/dL (0.20-1.00); TOTAL PROTEIN 6.3 g/dL (6.3-8.3)
[2019-06-06] MEDS ORDERED: KLOR-CON PO ONE (06:59)
[2019-06-06 07:08] LABS: CK TOTAL 2451 U/L (24-173)
[2019-06-06] MEDS: MIRALAX PO SCH ×2 (08:17→20:28)
[2019-06-06] MEDS: LOVENOX SUBQ SCH (08:17)
[2019-06-06] MEDS: COLACE PO SCH ×2 (08:17→20:28)
[2019-06-06] MEDS ORDERED: CITRATE OF MAGNESIA PO ONE (09:22)
[2019-06-06] MEDS ORDERED: DULCOLAX PR ONE (10:37)
[2019-06-06] MEDS: DILAUDID IV PRN ×3 (11:58→21:03)
--- NOTE | 2019-06-06 11:58 | Diag Imaging Result Doc PS360 ---
EXAM: ABDOMEN FLAT/UPRIGHT 06/06/2019 HISTORY: abdominal pain TECHNIQUE: Flat and upright abdomen portable COMMENT: There is gas throughout the colon. The stomach and small bowel are not distended. There is no evidence for organomegaly or mass. There has been previous cholecystectomy. IMPRESSION: Nonspecific abdomen. Electronically signed by John Long 06/06/2019 11:55 AM
--- NOTE | 2019-06-06 18:35 | PROGRESS NOTE ---
DATE: 06/06/2019 SUBJECTIVE: The patient continues to complain of severe abdominal pain. She states that she is no longer nauseous, but she is not able to eat due to the pain. OBJECTIVE: Vital Signs: Temperature 97.8 degrees, blood pressure 113/71, heart rate 68, respirations 18, O2 saturation 95% on room air. General: This is a thin female lying in bed in no acute distress. Heart: S1, S2 normal. Regular rate and rhythm. Lungs: Clear to auscultation bilaterally. No wheezing. No rales. No rhonchi. Abdomen: Positive bowel sounds. Tenderness in the left lower quadrant. Neurologic: The patient is alert and oriented x3. IMAGING: An abdominal x-ray shows a nonspecific abdomen. ASSESSMENT AND PLAN: 1. Abdominal pain. The etiology is unknown. All of the patient's imaging so far has been unremarkable. The patient also complains of intermittent nausea associated with her abdominal pain. She reports that she has not had a bowel movement in several days. We will continue with laxative therapy. The patient is also scheduled to undergo a gastric emptying study tomorrow. We will await further recommendations from Gastroenterology. 2. Hypernatremia. Resolved. 3. Marijuana dependence. The patient has been counseled about cessation. 4. Transaminitis. Slowly improving. 5. Rhabdomyolysis. Continue with IV fluids. This appears to be improving as well. 6. Gastrointestinal prophylaxis. Continue on Protonix. 7. Deep vein thrombosis prophylaxis. Continue on Lovenox. cc: Kathie Jaquez MD
[2019-06-07] MEDS: ZOFRAN IV PRN (00:01)
[2019-06-07] MEDS: DILAUDID IV PRN (00:01)
[2019-06-07 07:33] LABS: HEMATOCRIT 36.9 % (37.0-47.0); HEMOGLOBIN 12.1 g/dL (12.0-16.0); MCH 31.3 PG (27-31); MCHC 32.8 g/dL (33-37); MCV 95.6 FL (81-99); MPV 9.9 FL (7.4-10.4); RBC 3.86 XMIL (4.2-5.4); RDW 13.1 % (11.5-14.5); WBC 3.46 X1000 (4.8-10.8)
[2019-06-07 08:05] LABS: AGAP 9; ALB/GLOB RATIO 1.8; ALBUMIN 3.7 g/dL (3.5-5.0); ALKALINE PHOSPHATASE 49 U/L (32-104); BUN 6 mg/dL (8-22); CHLORIDE 100 mmol/L (98-107); CK TOTAL 1261 U/L (24-173); COSMO 281; CREATININE 0.7 mg/dL (0.5-0.9); ESTIMATED GFR > 60; GLUCOSE 96 mg/dL (70-104); GOT 102 U/L (10-30); GPT 145 U/L (10-36); PHOSPHORUS 3.6 mg/dL (2.7-4.5); POTASSIUM 3.8 mmol/L (3.5-5.1); SODIUM 142 mmol/L (136-145); TCO2 33 mmol/L (25-35); TOTAL BILIRUBIN 0.27 mg/dL (0.20-1.00); TOTAL PROTEIN 5.8 g/dL (6.3-8.3)
[2019-06-07] MEDS: LOVENOX SUBQ SCH (08:50)
[2019-06-07] MEDS: D5W 1,000 ML IV SCH (09:05)
--- NOTE | 2019-06-07 13:07 | NEPHROLOGY PROGRESS NOTE ---
DATE: 06/07/2019 Subjective: patient lying in bed awake watching television. Voices vomiting around midnight last night after receiving pain medication. No other complaints. Objective: Vitals. Temperature 97.8, pulse 60, respirations 11, blood pressure 92/65, 02 sat 97% on room air. General: Thin, -[place] female lying in bed in no acute distress. HEENT: atraumatic, normocephalic. mucous membranes moist. Trachea midline Skin: warm and dry. Neck: supple, No JVD Cardiovascular: S1, S2 with regular rate and rhythm. No murmurs or gallops. Respiratory: lungs clear bilaterally with equal excursion. Abdomen: soft, nontender, nondistended with Hypoactive bowel sounds. : not inspected Extremities: no clubbing cyanosis or edema noted. Neurological: alert and oriented to person and place. Labs: WBC 3.46, hemoglobin 12.1, hematocrit 36.9, platelet count 164, intake 1280, output 2500. Impression: Hypernatremia. Resolved. Will discontinue D5 IV fluids. Chronic nausea. She had received pain medication on an empty stomach and attributes this to her nausea and vomiting around midnight last night. Toxicology positive for opioids, oxycodone, and cannabinoids. She has a scheduled gastric emptying study today. Medications reviewed, no changes at this time. We will sign off. jessie cc: Michelet Hubbard MD MTDD
--- NOTE | 2019-06-07 14:29 | GASTROENTEROLOGY PROGRESS NOTE ---
DATE: 06/07/2019 ADMITTING PHYSICIAN: Kathie Jaquez MD SUBJECTIVE: The patient is resting in bed. She complains of constipation. She was able to eat 75% of meals. She complains of nausea. She denies any vomiting blood. Denies any blood in the stools. Denies any fevers, rigors, chills. OBJECTIVE: Vital Signs: Temperature 97.9 degrees, pulse rate of 70, respiratory rate 17, blood pressure 110/89, saturating 96% on room air. Body weight of 124 pounds and 1.6 ounces. BMI 19.4 kg/m2. General: Thinly built, lying in bed in no acute distress. HEENT: Mild pallor. No icterus. Pupils equal, reactive to light. Neck: Supple. Abdomen: Discomfort in the periumbilical region. No rebound or guarding. Extremities: No cyanosis or clubbing. Neurologic: She is alert, awake, oriented. IMAGING AND LABORATORY DATA: Hemoglobin and hematocrit are 12 and 36.9, white count 3.46, platelet count 164,000. Sodium 140, potassium 3.8, chloride 100, bicarb 30, anion gap 9, BUN of 6, creatinine 0.7, glucose of 96, calcium is 9. Phosphorus 3.6, magnesium 2.3. Total bilirubin is 0.27, AST 102, ALT 145, alkaline phosphatase 49, total protein is 5.8, albumin of 3.7, total bilirubin is 0.27, direct 0.1. Her creatine kinase is coming down to 1261. Total protein is 5.8, albumin 3.7. Urine toxicology screen is positive for opioids, oxycodone, and cannabinoids. Hepatitis panel is nonreactive. HIV screen is negative. Blood culture x2 negative at 48 hours on 06/03/2019. Abdominal x-ray done yesterday showed nonspecific abdomen. There is gas throughout the colon. There is no evidence of organomegaly or mass. There has been previous cholecystectomy. IMPRESSION AND PLAN: 1. Abdominal pain. 2. Nausea and vomiting. 3. Marijuana dependence. 4. Cannabinoid hyperemesis syndrome. 5. Dehydration. 6. Severe hypernatremia, which resolved. 7. Rhabdomyolysis, resolving. 8. Constipation. RECOMMENDATIONS: 1. She will continue on Ensure per the primary care team. 2. She is currently n.p.o. and is scheduled for a gastric emptying study per the primary care team. This study may not be very accurate as the patient is on IV narcotics and is on Dilaudid as needed. We will review the results. We will continue the patient on PPI, Protonix, once daily. We will keep the patient on MiraLAX twice daily for constipation. She is on IV antiemetics, IV Zofran as needed for nausea, DVT prophylaxis with Lovenox. Her creatine kinase is improving. She may benefit from IV fluids. Will leave that to the discretion of primary care team. 3. The patient will follow up in the clinic in 3 weeks after discharge. The above plans were discussed with the patient, and all questions were answered. Please call us with any further questions. cc: MD Kathie Fragoso MD MTDD
[2019-06-07] MEDS: COLACE PO SCH ×2 (15:51→21:29)
[2019-06-07] MEDS: MIRALAX PO SCH ×2 (15:51→21:29)
[2019-06-07] MEDS: PROTONIX IV SCH (15:51)
--- NOTE | 2019-06-07 15:51 | Diag Imaging Result Doc PS360 ---
GASTRIC EMPTYING - 06/07/2019 INDICATION: Persistent nausea and abdominal pain TECHNIQUE: 370 uCi of labeled solid food was ingested COMPARISON: None FINDINGS: The T1 half of gastric emptying is 187 minutes. This is significantly delayed. IMPRESSION: Delayed gastric emptying rate compatible with gastroparesis. Electronically signed by Ron Patino 06/07/2019 3:48 PM
--- NOTE | 2019-06-07 17:31 | PROGRESS NOTE ---
DATE: 06/07/2019 SUBJECTIVE: The patient states that she feels a little bit better today. She had her gastric emptying study done this afternoon. OBJECTIVE: Vital Signs: Temperature 98.7 degrees, blood pressure 96/50, heart rate 69, respirations 19, O2 saturation is 100% on room air. General: This is a thin female lying in bed, in no acute distress. Heart: S1, S2 normal. Regular rate and rhythm. Lungs: Equal air entry bilaterally. No wheezing. No rales. Abdomen: Positive bowel sounds. Soft, nontender, nondistended. Extremities: No edema. No cyanosis. Neurologic: The patient is alert and oriented x4. LABS: White blood cell count 3.4, hemoglobin 12, hematocrit 36, platelets 164,000. Sodium 142, potassium 3.8, chloride 100, CO2 33, BUN 6, creatinine 0.7, glucose 96. AST 102, ALT 145. CK 1,261. Gastric emptying study reveals delayed gastric emptying compatible with gastroparesis. ASSESSMENT AND PLAN: 1. Gastroparesis. We will start the patient on a low dose of Reglan and monitor her response closely. We will restart her full liquid diet and await further recommendations from the manager mac. 2. Hypernatremia. Resolved. 3. Rhabdomyolysis. Slowly improving. We will continue with normal saline. 4. Marijuana dependence. The patient has been counseled about cessation. 5. Vitamin D deficiency. Continue with vitamin D replacement. 6. Constipation. Continue with laxative therapy. 7. Deep vein thrombosis prophylaxis. Continue on Lovenox. cc: Kathie Jaquez MD MTDD
[2019-06-07] MEDS: REGLAN IV SCH (19:59)
[2019-06-07] MEDS ORDERED: DULCOLAX PR ONE (21:00)
[2019-06-07] MEDS: NS 1,000 ML IV SCH ×2 (21:31→21:32)
[2019-06-08] MEDS: ZOFRAN IV PRN (03:45)
[2019-06-08] MEDS: DILAUDID IV PRN (03:45)
[2019-06-08 05:08] LABS: HEMATOCRIT 35.1 % (37.0-47.0); HEMOGLOBIN 11.9 g/dL (12.0-16.0); MCHC 33.9 g/dL (33-37); MCV 94.4 FL (81-99); MPV 9.5 FL (7.4-10.4); RBC 3.72 XMIL (4.2-5.4); WBC 3.3 X1000 (4.8-10.8)
[2019-06-08] MEDS: PROTONIX IV SCH (06:08)
[2019-06-08] MEDS: REGLAN IV SCH ×2 (06:09→11:13)
[2019-06-08 07:57] LABS: AGAP 13; ALBUMIN 3.9 g/dL (3.5-5.0); BUN 7 mg/dL (8-22); CALCIUM 8.4 mg/dL (8.8-10.2); CHLORIDE 105 mmol/L (98-107); COSMO 285; CREATININE 0.8 mg/dL (0.5-0.9); ESTIMATED GFR > 60; GLUCOSE 100 mg/dL (70-104); PHOSPHORUS 3.8 mg/dL (2.7-4.5); POTASSIUM 3.8 mmol/L (3.5-5.1); SODIUM 144 mmol/L (136-145); TCO2 26 mmol/L (25-35)
[2019-06-08] MEDS: MIRALAX PO SCH (09:28)
[2019-06-08] MEDS: LOVENOX SUBQ SCH (09:29)
[2019-06-08] MEDS: COLACE PO SCH (09:29)
[2019-06-08] MEDS: NS 1,000 ML IV SCH (09:30)
[2019-06-08 12:15] VITALS: BP 94/50
[2019-06-08] MEDS ORDERED: FLU VACCINE IM ONE (14:00)
--- NOTE | 2019-06-08 14:27 | DISCHARGE SUMMARY ---
ADMISSION DATE: 06/03/2019 DISCHARGE DATE: 06/08/2019 HISTORY OF PRESENT ILLNESS: Her doctor is Dr. Taran Estrada. This is a 33-year-old with one week of intermittent nausea, vomiting, poor appetite, abdominal pain. Has a history of cannabis hyperemesis syndrome and marijuana dependence. Presented to the emergency room with a chief complaint of a week of persistent lower abdominal pain associated with intermittent bouts of nausea and vomiting. Patient reports that she had the same thing happen in July of last year, at which time she was admitted for several days for treatment. The patient initially presented to the emergency room on May 30 with the chief complaint of abdominal pain as well as intermittent nausea and vomiting, very poor appetite. Was assessed and given some fluids, pain medication, sent home. Returned to the emergency room on May 31. During that visit, CT of the abdomen and pelvis done which revealed no acute disease. She was treated with 2 L of fluid and given prescription for doxycycline, and told to stop smoking marijuana and to follow up with her primary care physician. Today, the patient states that her symptoms have worsened and she is unable to eat. States she has been drinking Gatorade as much as she could but ends up vomiting shortly after she drinks it. She rates the abdominal pain about a 10/10 in intensity and describes it as a crampy sensation. The patient states that Dr. Estrada placed her on Megace recently and she admits smoking marijuana about 3 times a day, almost every day, and has been doing this for several years. She was noted to have a CT of greater than 20,000. Sodium 159. Normal renal function. PAST MEDICAL HISTORY: 1. Cannabis hyperemesis syndrome. 2. Marijuana dependence. PAST SURGICAL HISTORY: No surgical history. HOSPITAL COURSE: She was admitted with cyclic vomiting and a history of heavy marijuana use. Given IV fluids. Followed her CKs. The nausea slowly improved. She had a pelvic ultrasound which was unremarkable. Nephrology was consulted and he felt that her hypernatremia etiology was not obvious. Urine osmolality was greater than 1200. There was no glucose in the dipstick. Random urine sodium was 38. The connection between hypernatremia and her rhabdomyolysis was not obvious, so continued IV fluids. She had a GI consult. She felt that she had a combination of cannabinoid hyperemesis syndrome, hypernatremia, rhabdomyolysis, and dehydration. Gastric emptying study done on 06/07/2019, delayed gastric empty, rate compatible with gastroparesis. Dr. Orozco was following the patient. On 06/08/2019, stated she had to go home and she needed to take care of things with her children. She insisted on going home so we will discharge her home. She is on Colace 100 mg b.i.d., vitamin D 50,000 units p.o. weekly. She is on MiraLAX 17 g p.o. b.i.d. and I will give her some Prilosec 40 mg daily. She will follow up with Dr. Estrada. Note that laboratory data, sodium came down to 144, creatinine was 0.8, BUN was 7. Her CKs came down to 600. cc: Arvind Kirby MD
== END 2019-06-08 14:29 | disposition home or self-care (01) | DRG 558 ==
LOC: ED 16:07 → SUATTDRO 16:27 → EDIPHOLD 16:27 → 2N 16:59 → 1N 06-07 17:10
PROVIDERS: ATTEND Emergency Medicine

== ENCOUNTER 2019-06-12 08:41 | Inpatient (IN) ==
--- NOTE | 2019-06-12 09:01 | PROVIDER DOCUMENTATION ---
HPI-General Adult - General Chief Complaint: SEPSIS ALERT - D Stated Complaint: ABD,BACK PAIN Time Seen by Provider: 06/12/19 08:53 Source: patient Allergies/Adverse Reactions: Patient Allergies Allergy/AdvReac Type Severity Reaction Status Date / Time No Known Allergies Allergy Verified 06/03/19 13:51 Home Medications: Home Medication List Medication Instructions Recorded Confirmed Last Taken Type Hydrocodone/Acetaminophen 1 ea PO Q6H PRN 06/03/19 06/12/19 06/11/19 History [Hydrocodone-Acetamin 7.5-325] Docusate Sodium [Colace] 100 mg PO BID 30 Days #60 cap 06/08/19 06/12/19 06/11/19 Rx Esomeprazole [Nexium] 40 mg PO DAILY 30 Days #30 cap 06/08/19 06/12/19 06/11/19 Rx Polyethylene Glycol 3350 [Miralax] 17 gm PO BID 30 Days #1 powder, 06/08/19 06/12/19 06/11/19 Rx packet - History of Present Illness -Gen Adult Nature of Presenting Problems: Pt. is 33 yof that presents with c/o pain all over. Pt. reports she was recently discharged for the same. She states she has kidney problems. She denies any other complaints. Location of Pain/Injury: reports: generalized. denies: none, head, face, mouth, neck, chest, upper extremity, hand(s), abdomen, back, pelvis, genitalia, lower extremity, feet, upper body, lower body, other Pain Radiation: reports: no radiation. denies: arm(s), back, buttocks, chest, epigastric, feet, groin, jaw, flank (L), legs (lower), LLQ, LUQ, neck, periumbilical, flank (R), RLQ, RUQ, shoulder(s), scapula, scrotal, sternal notch, suprapubic, legs (upper), urethral, vaginal, other Quality of Pain: reports: aching. denies: burning, pressure, tightness Severity: reports: moderate. denies: mild, severe Onset/Duration: reports: abrupt, last night Timing: reports: still present. denies: improving, intermittent, getting worse Context/Activities at Onset: reports: sleep. denies: none, light activity, moderate activity, vigorous activity, recent emotional stress, recent physical stress, recent trauma history, possible bad food, cold exposure, eating, out of country travel, rest, sexual activity, other Modifying Factors: improves with: nothing Associated Symptoms: reports: muscle aches. denies: denies symptoms, anxiety, arm pain, back/neck pain, chest pain, constipation, cough, diaphoresis, diarrhea, dizziness, EENT symptoms, fatigue, fever/chills, genitourinary problems, headaches, heartburn, joint pain, loss of appetite, malaise, sinus congestion/drainage, nausea, rash, seizure, shortness of breath, sensory/motor loss, pain with inspiration, swelling/mass in abdomen, syncope, vomiting, weakness, trouble walking, other Similar Symptoms Previously?: Yes Recently seen or treated by another doctor?: Yes Review of Systems - Adult - REVIEW OF SYSTEMS - ADULT Constitutional: reports: no symptoms reported Eyes: reports: no symptoms reported Ears, Nose, Mouth & Throat: reports: no symptoms reported Cardiovascular: reports: no symptoms reported Respiratory: reports: no symptoms reported Gastrointestinal: reports: no symptoms reported Genitourinary: reports: no symptoms reported Musculoskeletal: reports: see HPI, muscle aches. denies: back pain, joint swelling, neck pain Integumentary: reports: no symptoms reported Neurological: reports: no symptoms reported Psychiatric: reports: no symptoms reported Past History - Adult - PAST MEDICAL HISTORY-ADULT Review of Records: reports: Old Records Reviewed, Nursing Assessment Review, Medications Reviewed, Social history reviewed & non-contributory. Major Childhood Illnesses: reports: denies history Cardiovascular: reports: denies history Respiratory: reports: denies history Gastrointestinal: reports: GERD, IBS, other ([facility]) Obstetrical/Gynecological: reports: denies history Genitourinary: reports: denies history Musculoskeletal: reports: chronic pain (back) Neurological: reports: denies history Psychiatric: reports: denies history Endocrine/Immune: reports: denies history Other Conditions: reports: denies history - PRIOR SURGERIES/PROCEDURES Surgical/Procedure History: reports: cholecystectomy, BTL, tonsillectomy - IMMUNIZATION STATUS Childhood Immunizations: See Nurse Assessment Flu Vaccine: See Nurse Assessment - FAMILY HISTORY Family History: reviewed, not pertinent - SOCIAL HISTORY Smoking: denies Physical Exam-General - PHYSICAL EXAM-ADULT Initial Vital Signs Reviewed: Yes - CONSTITUTIONAL General Appearance: alert, moderate distress, thin. negative: anxious, slow to respond, obtunded, combative - EYES Eyes: PERRL/EOMI, pink conjunctivae - HEAD, EARS, NOSE, MOUTH & THROAT HENMT: normocephalic/atraumatic, moist mucous membranes - NECK Neck: non-tender, full range of motion, supple, normal inspection - RESPIRATORY Respiratory: lungs clear, normal breath sounds - CARDIOVASCULAR Cardiovascular: regular rate, rhythm, no edema, tachycardia - GASTROINTESTINAL (ABDOMEN) Abdominal Exam: non tender, soft, abnormal bowel sounds (hypoactive). negative: tenderness, hernia, mass - LYMPHATIC Lymphatic: no adenopathy - MUSCULOSKELETAL Back Exam: normal inspection, no CVA tenderness, no vertebral tenderness Extremity: normal range of motion, non-tender, normal gait, normal inspection Peripheral Pulses: radial (R): 2+, radial (L): 2+ - SKIN Integumentary: normal color, normal turgor, warm/dry - NEUROLOGIC Neurologic: grossly normal, no motor/sensory deficits - PSYCHIATRIC Psych/Mental Status: normal mood/affect, normal thought content, normal thought process, oriented x 3. negative: anxious, paranoid, tearful Progress - PLAN OF CARE/RESULTS Progress/Plan/Lab Results: Vital Signs - 8 hr 06/12/19 08:46 Temperature 97.9 F Pulse Rate 114 H Respiratory Rate 24 Blood Pressure 126/61 O2 Sat by Pulse Oximetry 98 Orders Category Date Time Status Cardiac Monitoring DIRECTED Care 06/12/19 08:50 Active ED: Urine Bedside ORDERED Care 06/12/19 08:55 Active IV Insertion ORDERED Care 06/12/19 08:50 Active ALCOHOL BLOOD Stat Lab 06/12/19 08:59 Uncollected BLOOD CULTURE [BLDCUL] Stat Lab 06/12/19 08:50 Uncollected CBC WITH DIFF [HEME] Stat Lab 06/12/19 08:50 Uncollected CK PROFILE [SP CHEM] Stat Lab 06/12/19 08:50 Uncollected COMPREHENSIVE METABOLIC PANEL [CHEM] Stat Lab 06/12/19 08:50 Uncollected LIPASE [CHEM] Stat Lab 06/12/19 08:58 Uncollected URINALYSIS W/POSS RFLX CULT [URINALYSIS] Stat Lab 06/12/19 08:50 Uncollected URINE DRUG SCREEN Stat Lab 06/12/19 09:00 Uncollected Oxygen Device Stat Oth 06/12/19 08:50 Active Laboratory Tests 06/12/19 06/12/19 06/12/19 08:58 08:58 09:10 WBC 15.97 H RBC 3.79 L Hgb 12.0 Hct 35.2 L MCV 92.9 MCH 31.7 H MCHC 34.1 RDW Std Deviation 13.7 Plt Count 376 MPV 8.7 Neut % (Auto) 86.2 H Lymph % (Auto) 8.8 L [place] % (Auto) 4.9 Eos % (Auto) 0.0 Baso % (Auto) 0.1 Neut # (Auto) 13.76 H Lymph # (Auto) 1.41 [place] # (Auto) 0.79 H Eos # (Auto) 0.00 Baso # (Auto) 0.01 Segmented Neutrophils 78 H Lymphocytes 16 L Monocytes 4 Atypical Lymphocytes 2.0 Sodium Potassium Chloride Carbon Dioxide Anion Gap BUN Creatinine Estimated GFR/1.73 m2 BUN/Creatinine Ratio Glucose Calculated Osmolality Calcium Total Bilirubin AST ALT Alkaline Phosphatase Creatine Kinase Creatine Kinase Index CK-MB (CK-2) Total Protein Albumin Globulin Albumin/Globulin Ratio Lipase Plasma Lactate Urine Source CLEAN CATCH Urine Color YELLOW Urine Turbidity CLEAR Urine pH 8.5 Ur Specific [place] 1.023 Urine Protein 70 A Ur Glucose (Stick) NEGATIVE Ur Ketones (Stick) NEGATIVE Urine Blood NEGATIVE Urine Nitrite NEGATIVE Urine Bilirubin NEGATIVE Urobilinogen Dipstick NORMAL Urine Leukocytes NEGATIVE Urine WBC (Auto) <10 Urine RBC (Auto) <10 U Epithel Cells (Auto) <10 Urine Bacteria (Auto) NEGATIVE Urine Opiates Screen PRESUMPTIVE POS A Ur Oxycodone Screen NONE DETECTED Urine Methadone Screen NONE DETECTED Ur Barbiturates Screen NONE DETECTED Ur Phencyclidine Scrn NONE DETECTED Ur Amphetamines Screen NONE DETECTED U Benzodiazepines Scrn NONE DETECTED Urine Cocaine Screen NONE DETECTED U Cannabinoids Screen PRESUMPTIVE POS A Plasma/Serum Ethyl Alc 06/12/19 06/12/19 06/12/19 09:10 09:10 09:10 WBC RBC Hgb Hct MCV MCH MCHC RDW Std Deviation Plt Count MPV Neut % (Auto) Lymph % (Auto) [place] % (Auto) Eos % (Auto) Baso % (Auto) Neut # (Auto) Lymph # (Auto) [place] # (Auto) Eos # (Auto) Baso # (Auto) Segmented Neutrophils Lymphocytes Monocytes Atypical Lymphocytes Sodium 142 Potassium 3.9 Chloride 103 Carbon Dioxide 22 L Anion Gap 17 BUN 9 Creatinine 0.7 Estimated GFR/1.73 m2 > 60 BUN/Creatinine Ratio 13 Glucose 97 Calculated Osmolality 282 Calcium 9.6 Total Bilirubin 0.30 AST 53 H ALT 116 H Alkaline Phosphatase 63 Creatine Kinase 647 H Creatine Kinase Index 2.2 CK-MB (CK-2) 14.33 H Total Protein 6.9 Albumin 4.6 Globulin 2.3 Albumin/Globulin Ratio 2.0 Lipase 23 Plasma Lactate 2.8 H Urine Source Urine Color Urine Turbidity Urine pH Ur Specific [place] Urine Protein Ur Glucose (Stick) Ur Ketones (Stick) Urine Blood Urine Nitrite Urine Bilirubin Urobilinogen Dipstick Urine Leukocytes Urine WBC (Auto) Urine RBC (Auto) U Epithel Cells (Auto) Urine Bacteria (Auto) Urine Opiates Screen Ur Oxycodone Screen Urine Methadone Screen Ur Barbiturates Screen Ur Phencyclidine Scrn Ur Amphetamines Screen U Benzodiazepines Scrn Urine Cocaine Screen U Cannabinoids Screen Plasma/Serum Ethyl Alc Discussed results and plan of care with patient. Patient agrees with plan and verbalizes understanding. Result Diagrams: 06/12/19 09:10 06/12/19 09:10 - XRAY 1 XRAY Study: Chest [facility] - [address] [place] [address] [place], [place] [id number] [place] [address] - [address] [place] [address] Department of Imaging Patient: GOGO SAAVEDRA Date: 06/12/19#: [id number] : 1985ADM Status: REG ERAt#: [id number] Age/Sex: 33/FRoom/Bed: Loc: ED Ordering Physician: Caty Samuels Family Physician: None,PCP Reason for Procedure: back pain with elevated wbc Signed EXAM: CHEST-2 VIEWS HISTORY: back pain with elevated wbc TECHNIQUE: Two views COMPARISON: 06/03/2019 FINDINGS: The lungs are well expanded. The heart is not enlarged. The vessels are not distended. There are no infiltrates. No pleural effusions. Normal thoracic sp ine. IMPRESSION: No pneumonia Electronically signed by Abimael Helton 06/12/2019 11:20 AM 06/12/19 1120 Interpreting Physician: Abimael Helton MD Dictated Date/Time: 06/12/19 1120 cc: Caty Samuels; None,PCP) XRAY Interpretation: see note - CONSULTS/PCP/HOSPITALIST Notification #1 *Consult/PCP/Hospitalist*: Fabiola for hospitilist Time Discussed: 12:37 Reason/Comments: Admission Consult Disposition: Will see in ED, Admit Departure - Departure Date of Disposition Decision: 06/12/19 Time of Disposition Decision: 12:31 DIAGNOSIS: Marijuana use, continuous Chronic pain Qualifiers: Chronic pain type: other chronic pain Qualified Code(s): G89.29 - Other chronic pain Abdominal pain Qualifiers: Abdominal location: generalized Qualified Code(s): R10.84 - Generalized abdominal pain Gastritis Qualifiers: Gastritis type: unspecified gastritis Chronicity: acute Gastritis bleeding: without bleeding Qualified Code(s): K29.00 - Acute gastritis without bleeding Disposition: ADMITTED INPATIENT 09 Certified Medical Emergency: Emergent Condition: Stable Referrals and Follow-Ups: None,PCP [Primary Care Provider] - - Critical Care Note This patient required my direct & personal management of CC.: No Attestation - Physician/ PÉREZ Attestation Patient care was provided by Advanced Practice Provider:: Yes Advanced Practice Provider:: Caty Samuels Advanced Practice Provider documentation review:: The Mid-level provider documentation, treatment plan and medical decision making was reviewed by the physician who agrees with all treatment and medical decision making by the [facility]. The physician spent face to face time with patient:: No Advanced Practice Provider documentation review:: Supervising physician onsite and consulted in the evaluation and care of this patient. The physician did not have a face to face encounter with the patient.
[2019-06-12 09:16] LABS: URINE SOURCE CLEAN CATCH
[2019-06-12 09:19] LABS: BILIRUBIN URINE NEGATIVE (NEGATIVE); BLOOD URINE NEGATIVE (NEGATIVE); COLOR YELLOW; GLUCOSE URINE NEGATIVE (NEGATIVE); KETONE URINE NEGATIVE (NEGATIVE); LEUKOCYTES URINE NEGATIVE (NEGATIVE); NITRITE URINE NEGATIVE (NEGATIVE); PH URINE 8.5; PROTEIN URINE 70 mg/dL (NEGATIVE); SP GRAVITY URINE 1.023; TURBIDITY URINE CLEAR (CLEAR); UROBILINOGEN URINE NORMAL (NORMAL)
[2019-06-12 09:21] LABS: UR EPITHELIAL CELLS <10 /HPF (<10); URINE BACTERIA NEGATIVE /HPF; URINE RBC <10 /HPF (<10); URINE WBC <10 /HPF (<10)
[2019-06-12 09:22] LABS: BASO# 0.01 X1000 (0.0-0.2); BASO% 0.1 % (0.0-0.8); HEMATOCRIT 35.2 % (37.0-47.0); LYMPH# 1.41 X1000 (1.2-3.4); LYMPH% 8.8 % (20.5-51.1); MCH 31.7 PG (27-31); MCHC 34.1 g/dL (33-37); MCV 92.9 FL (81-99); MONO# 0.79 X1000 (0.11-0.59); MONO% 4.9 % (1.7-9.3); MPV 8.7 FL (7.4-10.4); NEUT# 13.76 X1000 (1.4-6.5); NEUT% 86.2 % (42.2-75.2); PLT 376 X1000 (130-400); RBC 3.79 XMIL (4.2-5.4); RDW 13.7 % (11.5-14.5); WBC 15.97 X1000 (4.8-10.8)
[2019-06-12] MEDS ORDERED: NORFLEX IV ONE (09:22)
[2019-06-12] MEDS ORDERED: NS 1,000 ML IV ONE (09:55)
[2019-06-12 09:59] LABS: AGAP 17; ALBUMIN 4.6 g/dL (3.5-5.0); ALKALINE PHOSPHATASE 63 U/L (32-104); BUN 9 mg/dL (8-22); CALCIUM 9.6 mg/dL (8.8-10.2); CHLORIDE 103 mmol/L (98-107); COSMO 282; CREATININE 0.7 mg/dL (0.5-0.9); ESTIMATED GFR > 60; GLUCOSE 97 mg/dL (70-104); GOT 53 U/L (10-30); GPT 116 U/L (10-36); LIPASE 23 U/L (13-60); POTASSIUM 3.9 mmol/L (3.5-5.1); SODIUM 142 mmol/L (136-145); TCO2 22 mmol/L (25-35); TOTAL PROTEIN 6.9 g/dL (6.3-8.3)
[2019-06-12 10:05] LABS: UR AMPHETAMINES MT NONE DETECTED (NONE DETECT); UR BARBITUATES MT NONE DETECTED (NONE DETECT); UR BENZODIAZ MT NONE DETECTED (NONE DETECT); UR OPIATES MT PRESUMPTIVE POS (NONE DETECT)
[2019-06-12 10:06] LABS: UR CANNABIS MEDTOX PRESUMPTIVE POS (NONE DETECT); UR COCAINE MT NONE DETECTED (NONE DETECT); UR METHADONE MEDTOX NONE DETECTED (NONE DETECT); UR OXYCODONE MEDTOX NONE DETECTED (NONE DETECT); UR PCP MEDTOX NONE DETECTED (NONE DETECT)
[2019-06-12 10:09] LABS: CK PROFILE 647 U/L (24-173)
[2019-06-12 10:35] LABS: CK INDEX 2.2 (0.0-2.5); CK-MB 14.33 ng/mL (0.0-5.0)
[2019-06-12] MEDS ORDERED: REGLAN IV ONE (10:46)
[2019-06-12 10:55] LABS: LYMPHS 16 % (21-51); MONO 4 % (1-9); SEGS 78 % (42-75)
--- NOTE | 2019-06-12 11:23 | Diag Imaging Result Doc PS360 ---
EXAM: CHEST-2 VIEWS HISTORY: back pain with elevated wbc TECHNIQUE: Two views COMPARISON: 06/03/2019 FINDINGS: The lungs are well expanded. The heart is not enlarged. The vessels are not distended. There are no infiltrates. No pleural effusions. Normal thoracic spine. IMPRESSION: No pneumonia Electronically signed by Abimael Helton 06/12/2019 11:20 AM
--- NOTE | 2019-06-12 12:27 | Diag Imaging Result Doc PS360 ---
EXAM: CT ABD/PELVIS W/IV CONT ONLY HISTORY: abd pain TECHNIQUE: CT abdomen and pelvis with intravenous contrast COMPARISON: 05/31/2019 Radiation warning: Consideration should be given to other imaging modalities due to the number of CTs having been performed in the past FINDINGS: The gallbladder has been removed. No focal hepatic abnormality although there may be fatty infiltration. No splenomegaly. Pancreas and adrenal glands. No change in the left renal cyst. No hydronephrosis. Normal aorta. There is stool throughout the colon. There are fluid-filled loops of bowel in the pelvis. The urinary bladder is moderately distended and normal. Normal uterus. IMPRESSION: Constipation with possible ileus or enteritis. This exam was performed using automated exposure control, adjustment of mA or kV according to patient size, and/or use of iterative reconstruction technique. Electronically signed by Abimael Helton 06/12/2019 12:25 PM
[2019-06-12] MEDS ORDERED: NORCO-7.5 PO PRN (13:35)
[2019-06-12] MEDS ORDERED: TYLENOL PO PRN (13:35)
[2019-06-12] MEDS ORDERED: SODIUM CHLORIDE 0.9% INJ PRN (13:35)
[2019-06-12] MEDS: PHENERGAN IV PRN ×2 (13:51→20:18)
[2019-06-12] MEDS: NS 1,000 ML IV SCH (13:52)
[2019-06-12] MEDS: ZOFRAN IV PRN (14:09)
[2019-06-12] MEDS: ATIVAN IV PRN (16:04)
[2019-06-12] MEDS: ZOSYN 3.375 GM in NS 50 ML IV SCH ×2 (17:23→22:14)
[2019-06-12] MEDS: ROBAXIN 500 MG in NS 50 ML IV SCH (18:10)
--- NOTE | 2019-06-12 20:08 | HISTORY AND PHYSICAL ---
PRIMARY CARE PROVIDER: Dr. Estrada. CHIEF COMPLAINT: Abdominal pain. HISTORY OF PRESENT ILLNESS: Ms. Traci West is a 33-year-old female with a medical history of abdominal pain, daily marijuana use, along with hyperemesis; cannabinoid hyperemesis syndrome in the past. She most recently was here between 06/03 and 06/08, and was diagnosed with gastroparesis. She states that for at least the last 2 days she has not had a bowel movement, and then around 11:00 last night started developing severe epigastric pain with nausea and vomiting. She denies any fever, and the last time she ate was yesterday. She had imaging which revealed either enteritis or an ileus. She does have an elevated white count along with an elevated lactate, but it is likely dehydration. Of course, positive for cannabinoids and opiates because she takes medication for chronic pain, which also increases her risk for ileus. We will admit her, hydrate her, let her have clear liquids and start her on some medication/antibiotics for the possible enteritis, and hopefully get her having a bowel movement. PAST MEDICAL HISTORY: 1. Cannabinoid hyperemesis syndrome with daily marijuana use. 2. Gastroparesis. 3. Recent rhabdomyolysis. 4. Transaminitis. 5. Irritable bowel syndrome. 6. GERD with history of H. pylori. 7. Chronic back pain. 8. History of colitis and duodenitis. PAST SURGICAL HISTORY: 1. Cholecystectomy. 2. Bilateral tubal ligation. 3. Tonsillectomy. SOCIAL HISTORY: She lives with her boyfriend, smokes marijuana 3 times a day every day for several years. Denies any alcohol or cigarettes. She used to be a heavy smoker, [id number] smoker, and it looks like she used to drink a lot of alcohol. On looking in a note from 2014, she was drinking up to 1 L of alcohol 2-3 times a month. FAMILY HISTORY: None. REVIEW OF SYSTEMS: Fourteen-point review of systems are complete and all are negative except for those mentioned in the above HPI. PHYSICAL EXAMINATION: VITAL SIGNS: Temperature 98.2 degrees, heart rate 105, respiratory rate 18, blood pressure 116/62, O2 saturation 100% on room air. GENERAL: Ms. Traci West is a 33-year-old female. She is in no acute distress. She is able to answer questions appropriately. HEENT: Atraumatic, normocephalic. Pupils equal, round, reactive to light. Extraocular movements intact. Mucous membranes are very dry. NECK: Trachea midline. CARDIOVASCULAR: S1, S2. Regular rate and rhythm. No rubs, gallops or murmurs. No lower extremity edema. Dorsalis and radial pulses +2. Negative JVD or carotid bruits. PULMONARY: Clear to auscultate. Bilateral breath sounds. No accessory muscle use or work of breathing noted. GASTROINTESTINAL: Soft. Tender in the epigastric region. Positive bowel sounds x4 but hypoactive. EXTREMITIES: Moves all extremities equally. Full range of motion. NEUROLOGIC: Alert and oriented x3. Follows commands. Sensory is intact. SKIN: Warm, dry, intact. LABORATORY DATA: White blood cells 15,000, hemoglobin 12, hematocrit 35, platelet count 376,000. Sodium 142, potassium 3.9, BUN 9, creatinine 0.7, glucose 97, calcium 9.6, bilirubin 0.30, AST 53, ALT 116. CK 647. Albumin 4.6. Lipase 23. Lactate 2.8. Urinalysis: Protein is 70, otherwise negative. Urine is positive for opiates and cannabinoids. Alcohol is negative. Hepatitis performed on 06/03 negative. HIV test performed on 06/04 also negative. DIAGNOSTIC DATA: Chest x-ray is negative. Abdominopelvic CT: Constipation with possible ileus or enteritis. ASSESSMENT AND PLAN: 1. Gastroparesis with possible ileus versus enteritis. We will treat her with antibiotics, give her intravenous fluids and encourage her to walk to resolve ileus. 2. Intractable nausea and vomiting, could be cyclic or hyperemesis syndrome from cannabinoid use. Zofran or Phenergan. 3. There is still a mild degree of rhabdomyolysis now from her last admission. We will give her some intravenous fluid hydration. 4. Marijuana abuse. Cessation discussed. 5. Transaminitis, chronic. From a note in [address] Estrada when she was admitted, apparently she drank kind of heavy, although she denies it now. 6. Constipation. We will continue home medications on that, MiraLAX and Colace, and give her fluids. 7. Deep venous thrombosis prophylaxis. Sequential compression devices. Dictated by HALLIE Phelps for Fausto Montiel MD Addendum: Patient seen and examined by myself. Agree with HALLIE note. It reflects my assessment and plan. Patient is being admitted to hospital for enteritis. Will start Zosyn. Will provide IV fluids and will be cautious with pain meds. She was advised to quit abusing recreational drugs. cc: HALLIE Phelps MD MTDD
[2019-06-12] MEDS: MIRALAX PO SCH (20:12)
[2019-06-12] MEDS: COLACE PO SCH (20:13)
[2019-06-12] MEDS: PRILOSEC PO SCH (20:13)
[2019-06-12] MEDS: NORCO-7.5 PO PRN (20:14)
[2019-06-12] MEDS ORDERED: MORPHINE IV ONE (23:13)
[2019-06-13] MEDS: ATIVAN IV PRN (00:58)
[2019-06-13] MEDS: NORCO-7.5 PO PRN ×3 (00:59→09:11)
[2019-06-13] MEDS: NS 1,000 ML IV SCH ×2 (01:53→10:32)
[2019-06-13] MEDS: ROBAXIN 500 MG in NS 50 ML IV SCH ×3 (02:27→19:30)
[2019-06-13] MEDS: ZOFRAN IV PRN (03:30)
[2019-06-13] MEDS: ZOSYN 3.375 GM in NS 50 ML IV SCH ×4 (04:11→22:09)
[2019-06-13 05:15] LABS: BASO# 0.01 X1000 (0.0-0.2); BASO% 0.1 % (0.0-0.8); HEMATOCRIT 32.5 % (37.0-47.0); HEMOGLOBIN 10.9 g/dL (12.0-16.0); IMM GRAN# 0.03 X1000 (0.0-0.04); IMM GRAN% 0.2 % (0.0-0.5); LYMPH# 1.08 X1000 (1.2-3.4); LYMPH% 8.8 % (20.5-51.1); MCH 31.2 PG (27-31); MCHC 33.5 g/dL (33-37); MCV 93.1 FL (81-99); MONO# 0.76 X1000 (0.11-0.59); MONO% 6.2 % (1.7-9.3); MPV 8.5 FL (7.4-10.4); NEUT# 10.38 X1000 (1.4-6.5); NEUT% 84.7 % (42.2-75.2); PLT 335 X1000 (130-400); RBC 3.49 XMIL (4.2-5.4); RDW 14.3 % (11.5-14.5); WBC 12.26 X1000 (4.8-10.8)
[2019-06-13 05:25] LABS: INR 1.11; PROTIME 14.4 Seconds (11.0-16.0)
[2019-06-13 05:48] LABS: AGAP 16; ALB/GLOB RATIO 1.7; ALKALINE PHOSPHATASE 57 U/L (32-104); BUN 13 mg/dL (8-22); CHLORIDE 109 mmol/L (98-107); COSMO 290; CREATININE 0.7 mg/dL (0.5-0.9); ESTIMATED GFR > 60; GLUCOSE 91 mg/dL (70-104); GOT 48 U/L (10-30); GPT 87 U/L (10-36); MAGNESIUM 1.9 mg/dL (1.5-2.7); SODIUM 146 mmol/L (136-145); TCO2 21 mmol/L (25-35); TOTAL BILIRUBIN 0.41 mg/dL (0.20-1.00); TOTAL PROTEIN 6.3 g/dL (6.3-8.3)
--- NOTE | 2019-06-13 08:11 | Diag Imaging Result Doc PS360 ---
EXAM: ABDOMEN FLAT/UPRIGHT HISTORY: ?ileus TECHNIQUE: Flat and upright, two views COMPARISON: 06/06/2019 FINDINGS: No free air beneath the diaphragm. The gallbladder has been removed. No organomegaly. There is stool throughout the colon. Slight air distended loops of small bowel in the midabdomen.. IMPRESSION: Constipation with possible ileus. Electronically signed by Abimael Helton 06/13/2019 8:08 AM
--- NOTE | 2019-06-13 09:49 | PROGRESS NOTE ---
DATE: 06/13/2019 SUBJECTIVE: The patient reports still complaining of abdominal pain. No other issues noted as per nursing staff overnight. OBJECTIVE: Vital Signs: Temperature 98.3 degrees, heart rate 97, respiratory rate 18, blood pressure 109/62, O2 saturation 99% on room air. General: This is a 33-year-old female, lying in bed in no acute distress. Cardiovascular: S1, S2 heard. No murmurs, gallops, or rubs. Regular rate and rhythm. Respiratory: Clear bilaterally to auscultation. No work of breathing or using accessory muscles. Abdomen: Soft. Nontender to palpation. No signs of peritoneal irritation. Bowel sounds present. No organomegaly. Extremities: No clubbing, cyanosis, or edema. Peripheral pulses present in both legs. Neurological: The patient is alert, oriented x3. Moves all 4 extremities. LABORATORY DATA: Reviewed. ASSESSMENT AND PLAN: 1. Gastroparesis with possible ileus versus enteritis. The patient reports abdominal pain is still there. She takes pain medications on a regular basis. The patient is going to be on Colace and MiraLAX to help move her bowels. Considering that she is a chronic pain user, I am going to increase the doses of [place] to 10 mg by mouth every 4 hours as needed, and morphine intravenously as needed as well. 2. Intractable nausea and vomiting. Will continue with Phenergan. The patient reports feeling better. 3. Marijuana abuse. Patient advised to stop smoking. 4. Constipation as we mentioned above. Will try MiraLAX and Colace. 5. Disposition. If this patient's white cell count is getting better, will discharge her tomorrow. cc: Fausto Montiel MD
[2019-06-13] MEDS: PRILOSEC PO SCH ×2 (10:40→20:31)
[2019-06-13] MEDS: COLACE PO SCH ×2 (10:40→20:31)
[2019-06-13] MEDS: MIRALAX PO SCH ×2 (10:40→20:31)
[2019-06-13 13:18] LABS: CALCIUM 9.8 mg/dL (8.8-10.2)
[2019-06-13] MEDS: NORCO-10 PO PRN ×2 (14:31→18:35)
[2019-06-14] MEDS: NS 1,000 ML IV SCH ×2 (00:54→09:31)
[2019-06-14] MEDS: ROBAXIN 500 MG in NS 50 ML IV SCH ×2 (00:57→08:45)
[2019-06-14] MEDS: ZOSYN 3.375 GM in NS 50 ML IV SCH ×2 (04:16→09:24)
[2019-06-14 05:40] LABS: BASO# 0.01 X1000 (0.0-0.2); BASO% 0.2 % (0.0-0.8); EOS# 0.06 X1000 (0.0-0.7); EOS% 1.2 % (0.0-10.0); HEMATOCRIT 32.6 % (37.0-47.0); HEMOGLOBIN 10.6 g/dL (12.0-16.0); LYMPH# 2.78 X1000 (1.2-3.4); LYMPH% 57.3 % (20.5-51.1); MCHC 32.5 g/dL (33-37); MCV 95.3 FL (81-99); MONO# 0.46 X1000 (0.11-0.59); MONO% 9.5 % (1.7-9.3); MPV 8.6 FL (7.4-10.4); NEUT# 1.54 X1000 (1.4-6.5); NEUT% 31.8 % (42.2-75.2); PLT 292 X1000 (130-400); RBC 3.42 XMIL (4.2-5.4); RDW 14.8 % (11.5-14.5); WBC 4.85 X1000 (4.8-10.8)
[2019-06-14 05:48] LABS: AGAP 9; ALB/GLOB RATIO 1.9; ALBUMIN 3.4 g/dL (3.5-5.0); ALKALINE PHOSPHATASE 46 U/L (32-104); BUN 9 mg/dL (8-22); CALCIUM 7.7 mg/dL (8.8-10.2); CHLORIDE 107 mmol/L (98-107); COSMO 273; CREATININE 0.9 mg/dL (0.5-0.9); ESTIMATED GFR > 60; GLUCOSE 80 mg/dL (70-104); GOT 36 U/L (10-30); GPT 71 U/L (10-36); MAGNESIUM 1.9 mg/dL (1.5-2.7); SODIUM 138 mmol/L (136-145); TCO2 22 mmol/L (25-35); TOTAL BILIRUBIN 0.41 mg/dL (0.20-1.00); TOTAL PROTEIN 5.2 g/dL (6.3-8.3)
[2019-06-14] MEDS: MORPHINE IV PRN ×2 (07:23→12:14)
[2019-06-14 07:59] VITALS: BP 114/83
[2019-06-14] MEDS: PRILOSEC PO SCH (08:45)
[2019-06-14] MEDS: COLACE PO SCH (08:45)
[2019-06-14] MEDS: MIRALAX PO SCH (08:46)
[2019-06-14] MEDS: NORCO-10 PO PRN (09:21)
[2019-06-14] MEDS ORDERED: GOLYTELY PO ONE (09:42)
--- NOTE | 2019-06-14 23:32 | DISCHARGE SUMMARY ---
ADMISSION DATE: 06/12/2019 DISCHARGE DATE: 06/14/2019 DIAGNOSES: 1. Gastroparesis with possible ileus versus enteritis. 2. Intractable nausea, vomiting, improved. 3. Marijuana abuse. 4. Constipation. 5. Transaminitis, chronic. DIAGNOSTICS: 1. CT of the abdomen and pelvis revealed constipation with possible ileus or enteritis. 2. 06/13/2019 abdominal x-ray reveals constipation with possible ileus. HOSPITAL COURSE: Ms West presented to the emergency room complaining of abdominal pain. She was found to be constipated with a possible ileus or enteritis for which she was treated with IV fluids as well as a bowel regimen. She was initially NPO and given IV pain and nausea medication. Thankfully this is improved. She tolerated clear liquids with no further abdominal pain, nausea, vomiting and food was brought in from outside and she did tolerate this. Initial white count was 15, it is down to 4.5 today. Bowel regimen with Colace and MiraLAX. She did start have bowel movements which were formed while in the hospital. The patient was educated on hyperemesis cannabinoid syndrome and the fact that cannabis will paralyze or slow down the GI tract and this will recur with use of cannabis. She did voice understanding. She does have a history of transaminitis. This is chronic and reviewing her labs, AST and ALT are lower than they have been the last visit and they are decreasing having a AST of 53 on admission and 36 today, an ALT of 116 and 71 today. The patient does have a history of alcohol use and abuse. She does state that she no longer drinks alcohol. DISCHARGE PHYSICAL EXAM: Vital signs: Blood pressure is 114/83 with a heart rate of 88, respirations 18, temperature 98.2 degrees oral with room air saturations 100%. Cardiovascular: Regular rate and rhythm. S1 and S2 appreciated. She has no lower extremity edema. Calves are nontender bilateral with peripheral pulses palpable x4 extremities. Pulmonary: Breath sounds are clear. No increased work of breathing noted. Chest rises and falls symmetric respiration Gastrointestinal: Abdomen soft, nontender, nondistended. Bowel sounds in all 4 quadrants. Neurologic: She is alert, oriented x3. Skin: Is warm and dry. DISCHARGE MEDICATIONS: 1. MiraLAX 17 g p.o. b.i.d. 2. Prilosec 40 mg p.o. b.i.d. 3. Flagyl 500 mg p.o. t.i.d. for 7 days. 4. Levaquin 500 mg p.o. daily for 7 days. 5. [place] 7.5/325 one q.6 hours p.r.n. she needs to continue her previous prescription. 6. Nexium 40 mg p.o. daily. 7. Colace 100 mg p.o. b.i.d. FOLLOWUP: Dr. Estrada, her primary care physician June 22 at 11:15 a.m. She has been instructed to call to be seen sooner or return to the ER for any syncope, dizziness, chest pain, palpitations, temperature greater than 101, any recurring nausea, vomiting, diarrhea, constipation, black or bloody vomitus or stools or for any questions or concerns that she may have. She is being discharged home in stable condition with family members. TIME SPENT: Greater than 30 minutes. Dictated by HALLIE Moreno for Fausto Montiel MD cc: HALLIE Moreno MD
== END 2019-06-14 13:57 | disposition home or self-care (01) | DRG 392 ==
LOC: ED 08:41 → EDIPHOLD 14:52 → 1N 16:54
PROVIDERS: ATTEND Internal Medicine